=== PATIENT | male | born 1985 | race Caucasian/White ===

== ENCOUNTER 2017-03-29 03:15 | Emergency (ER) | payer SELFPAY ==
[~2017-03-29] VITALS: Ht 177.8 cm; Wt 61.2 kg
[2017-03-29] MEDS ORDERED: IV NORMAL SALINE 1000ML BAG 1,000 ML IV SCH (03:28)
[2017-03-29 03:45] LABS: BASO # 0.1 x10^3/uL (0.0-0.2); BASO % 1 % (0-3); EOS % 3 % (0-3); HEMATOCRIT 39.5 % (39.0-53.0); LYMPH # 1.8 x10^3/uL (1.0-4.8); LYMPH % 18 % (24-48); MEAN CORPUSCULAR HEMOGLOBIN 33 pg (25-35); MEAN CORPUSCULAR HGB CONC 33 g/dL (31-37); MEAN CORPUSCULAR VOLUME 100 fL (79-100); MONO % 7 % (0-9); NEUT % 72 % (31-73); PLATELET COUNT 279 x10^3/uL (140-400); RED BLOOD COUNT 3.98 x10^6/uL (4.30-5.70); RED CELL DISTRIBUTION WIDTH 13.8 % (11.5-14.5); WHITE BLOOD COUNT 10.3 x10^3/uL (4.0-11.0)
[2017-03-29 03:57] LABS: CALCIUM 8.6 mg/dL (8.5-10.1); CREATININE 0.8 mg/dL (0.7-1.3); GFR 114.3; POTASSIUM 4.6 mmol/L (3.5-5.1)
--- NOTE | 2017-03-29 04:09 | PHYS DOC ---
Past Medical History Past Medical History: Anxiety, Asthma, Diabetes-Type I, Other Additional Past Medical Histor: HERNIA Past Surgical History: No Surgical History Alcohol Use: Occasionally Additional Information: PT REPORTS DRUG USE A WEEK AGO BUT WILL NOT DISCLOSE WHAT TYPE OF DRUG HE USES Drug Use: Other Adult General Chief Complaint Chief Complaint: BLOOD SUGAR PROBLEM HPI HPI Patient is a 31 year old male who was being having some high blood sugars, patient also complains of productive cough and chest pain when he coughs that is midsternal. There is no radiation, no nausea, no vomiting, no sweats. Patient has had some chills. Patient has continued to smoke. Patient denies any sick contacts Review of Systems Review of Systems Constitutional: No fevers fever, he has chills [] Eyes: Denies change in visual acuity, redness, or eye pain [] HENT: Denies nasal congestion. He has Sore throat and productive cough [] Respiratory: Denies shortness of breath. Productive cough that is greenish, nonbloody Cardiovascular: Chest pain with cough GI: Denies abdominal pain, nausea, vomiting, Musculoskeletal: Denies back pain or joint pain [] Integument: Denies rash or skin lesions [] Neurologic: Denies headache, focal weakness or sensory changes [] Endocrine: Has polyuria or polydipsia [] Current Medications Current Medications Current Medications Medications (Trade) Dose Ordered Sig/Daisy Start Time Stop Time Status Last Admin Dose Admin Insulin Human Regular (NovoLIN R VIAL) 10 unit 1X ONCE 03/29/17 04:15 03/29/17 04:16 DC 03/29/17 04:28 10 UNIT Sodium Chloride 1,000 ml @ 1,000 mls/hr Q1H 03/29/17 03:28 03/29/17 04:27 DC 03/29/17 03:36 1,000 MLS/HR Allergies Allergies Allergies Coded Allergies Type Severity Reaction Last Updated Verified No Known Drug Allergies 03/29/17 No Physical Exam Physical Exam Constitutional: Well developed, well nourished, no acute distress, non-toxic appearance. [] HENT: Normocephalic, atraumatic, oropharynx dry, no oral exudates, nose normal. [] Eyes: PERRLA, EOMI, conjunctiva normal, no discharge. [] Neck: Normal range of motion, no tenderness, supple, no stridor. No LAD, no meningeal signs Cardiovascular:Heart rate regular rhythm, no murmur, equal pulses, normal perfusion Lungs & Thorax: Bilateral breath sounds clear to auscultation, no tachypnea. No Kussmaul breathing. Abdomen: Bowel sounds normal, soft, no tenderness, no masses, no pulsatile masses. [] Skin: Warm, dry, no erythema, no rash. [] Back: No tenderness, normal range of motion Extremities: No tenderness, no cyanosis, ROM intact, no edema. No signs of DVT Neurologic: Alert and oriented X 3, normal motor function, it no focal deficits noted, patient ambulated in the ED without difficulty with normal gait Psychologic: Affect normal, judgement normal, mood normal. [] Current Patient Data Vital Signs Vital Signs Date Time Temp Pulse Resp B/P (MAP) Pulse Ox O2 Delivery O2 Flow Rate FiO2 03/29/17 03:16 98.0 85 20 113/67 (82) 97 Room Air 98.0 Lab Values Laboratory Tests Test 03/29/17 03:25 03/29/17 03:33 Glucose (Fingerstick) 365 mg/dL (70-99) H White Blood Count 10.3 x10^3/uL (4.0-11.0) Red Blood Count 3.98 x10^6/uL (4.30-5.70) L Hemoglobin 13.0 g/dL (13.0-17.5) Hematocrit 39.5 % (39.0-53.0) Mean Corpuscular Volume 100 fL (79-100) Mean Corpuscular Hemoglobin 33 pg (25-35) Mean Corpuscular Hemoglobin Concent 33 g/dL (31-37) Red Cell Distribution Width 13.8 % (11.5-14.5) Platelet Count 279 x10^3/uL (140-400) Neutrophils (%) (Auto) 72 % (31-73) Lymphocytes (%) (Auto) 18 % (24-48) L Monocytes (%) (Auto) 7 % (0-9) Eosinophils (%) (Auto) 3 % (0-3) Basophils (%) (Auto) 1 % (0-3) Neutrophils # (Auto) 7.4 x10^3uL (1.8-7.7) Lymphocytes # (Auto) 1.8 x10^3/uL (1.0-4.8) Monocytes # (Auto) 0.8 x10^3/uL (0.0-1.1) Eosinophils # (Auto) 0.3 x10^3/uL (0.0-0.7) Basophils # (Auto) 0.1 x10^3/uL (0.0-0.2) Sodium Level 135 mmol/L (136-145) L Potassium Level 4.6 mmol/L (3.5-5.1) Chloride Level 101 mmol/L (98-107) Carbon Dioxide Level 20 mmol/L (21-32) L Anion Gap 14 (6-14) Blood Urea Nitrogen 13 mg/dL (8-26) Creatinine 0.8 mg/dL (0.7-1.3) Estimated GFR (Cockcroft-Gault) 114.3 Glucose Level 400 mg/dL (70-99) H Calcium Level 8.6 mg/dL (8.5-10.1) Troponin I Quantitative < 0.017 ng/mL (0.000-0.055) Laboratory Tests 03/29/17 03:33 Laboratory Tests 03/29/17 03:33 EKG EKG 71, sinus rhythm, no STEMI, EP interpretation at 0328 [] Radiology/Procedures Radiology/Procedures Chest x-ray preliminarily read by me no acute disease [] Course & Med Decision Making Course & Med Decision Making Pertinent Labs and Imaging studies reviewed. (See chart for details) 0451 pt sleeping comfortably, nad, no pain. [] Dragon Disclaimer Dragon Disclaimer This electronic medical record was generated, in whole or in part, using a voice recognition dictation system. Departure Departure Impression: Primary Impression: Cough Additional Impressions: Nonspecific chest pain Tobacco abuse Tobacco abuse counseling Hyperglycemia Dehydration Disposition: 01 HOME, SELF-CARE Condition: IMPROVED Referrals: NO PCP (PCP) Patient Instructions: Cough, Adult, [id number], Dehydration, Adult, Easy-to- Read, Hyperglycemia, [id number], Smoking Cessation, Tips For Success Additional Instructions: Please follow-up with your doctor or one of the clinics in the list provided to you in 1-2 days for recheck and reevaluation Problem Qualifiers Mai BARNES MD Mar 29, 2017 04:09
[2017-03-29] MEDS ORDERED: INSULIN REGULAR 100 UNIT/ML 10ML VIAL. IV ONE (04:15)
[2017-03-29 04:50] VITALS: BP 115/64
--- NOTE | 2017-03-29 07:38 | RAD ---
Portable AP view CXR: Clinical indications: Chest pain today. Comparison: March 27, 2011 Findings: Old granulomatous disease is again evident. No acute lung infiltrate or pleural effusion or pulmonary edema or lung mass or pneumothorax is seen. The heart size, pulmonary vasculature, mediastinum and both konrad are unremarkable. Impression: No acute radiographic abnormality is seen.
--- NOTE | 2017-03-29 09:24 | EKG ---
[facility] [address] [place] [address] Test Date: 2017-03-29 Test Time: 03:17:56 Pat Name: NICHOLAS CHAUHAN Department: Room: Gender: Audit Spec: : 1985 Requested By: Mai BARNES Order Number: [id number] Reading MD: Sohail Oneal Measurements Intervals [place] Rate: 71 P: 46 NC: 124 QRS: 43 QRSD: 82 T: 49 QT: 364 QTc: 400 Interpretive Statements SINUS RHYTHM NO SPECIFIC ECG ABNORMALITIES Electronically Signed On 03-29-2017 15:11:09 CDT by Sohail Oneal
== END 2017-03-29 05:12 | disposition home or self-care (01) ==
LOC: ER 03:15
DX: E10.65 Type 1 diabetes mellitus with hyperglycemia (principal); E86.0 Dehydration; R07.89 Other chest pain; J45.909 Unspecified asthma, uncomplicated; F41.9 Anxiety disorder, unspecified; Z98.890 Other specified postprocedural states; R05 Cough; F17.200 Nicotine dependence, unspecified, uncomplicated
CPT/HCPCS: 36415; 71010; 80048; 82962; 84484; 85027; 93005; 96361; 96374; 99285; J1815; J7030

== ENCOUNTER 2017-11-11 19:36 | Emergency (ER) | payer SELFPAY, MEDICARE ==
[2017-11-11 19:43] LABS: ADD MAN DIFF? NO
[2017-11-11 19:45] LABS: BASO # 0.1 x10^3/uL (0.0-0.2); BASO % 1 % (0-3); EOS # 0.2 x10^3/uL (0.0-0.7); EOS % 2 % (0-3); HEMATOCRIT 43.5 % (39.0-53.0); HEMOGLOBIN 14.4 g/dL (13.0-17.5); LYMPH # 1.6 x10^3/uL (1.0-4.8); LYMPH % 15 % (24-48); MEAN CORPUSCULAR HEMOGLOBIN 31 pg (25-35); MEAN CORPUSCULAR HGB CONC 33 g/dL (31-37); MEAN CORPUSCULAR VOLUME 95 fL (79-100); MONO # 0.6 x10^3/uL (0.0-1.1); MONO % 5 % (0-9); NEUT # 8.3 x10^3uL (1.8-7.7); NEUT % 76 % (31-73); PLATELET COUNT 287 x10^3/uL (140-400); RED CELL DISTRIBUTION WIDTH 13.4 % (11.5-14.5); WHITE BLOOD COUNT 10.8 x10^3/uL (4.0-11.0)
[2017-11-11] MEDS ORDERED: CONTRAST GIVEN MC (19:45)
[2017-11-11 19:58] LABS: ANION GAP 6 (6-14); BLOOD UREA NITROGEN 11 mg/dL (8-26); BUN/CREATININE RATIO 8 (6-20); CALCIUM 8.8 mg/dL (8.5-10.1); CARBON DIOXIDE 28 mmol/L (21-32); CHLORIDE 102 mmol/L (98-107); CREATININE 1.3 mg/dL (0.7-1.3); GFR 64.8; GLUCOSE 406 mg/dL (70-99); POTASSIUM 4.5 mmol/L (3.5-5.1); SODIUM 136 mmol/L (136-145)
[2017-11-11] MEDS: IOHEXOL 300 MG/ML 100ML VIAL. IV (19:58)
[2017-11-11 19:59] LABS: ETHANOL < 10 mg/dL (0-10)
[2017-11-11 19:59] LABS: INR 1.1 (0.8-1.1); PARTIAL THROMBOPLASTIN TIME 30 SEC (24-38); PROTHROMBIN TIME PATIENT 13.2 SEC (11.7-14.0)
[2017-11-11 20:07] LABS: NT-PRO BNP 29 pg/mL (0-124); TROPONINI < 0.017 ng/mL (0.000-0.055)
[2017-11-11 20:11] LABS: ALBUMIN 3.9 g/dL (3.4-5.0); ALBUMIN/GLOBULIN RATIO 1.3 (1.0-1.7); ALK PHOS 66 U/L (46-116); ALT (SGPT) 18 U/L (16-63); AST (SGOT) 17 U/L (15-37); LIPASE 39 U/L (73-393); MAGNESIUM 1.9 mg/dL (1.8-2.4); TOTAL BILIRUBIN 0.5 mg/dL (0.2-1.0); TOTAL PROTEIN 6.9 g/dL (6.4-8.2)
[2017-11-11] MEDS: fentaNYL PF VIAL 100 MCG/2 ML VIAL IV (20:12)
[2017-11-11] MEDS: DIPHTH,PERTUSS(ACELL),TET TOX 0.5 ML DISP.SYRIN. VAX IM (20:12)
[2017-11-11] MEDS: KETOROLAC 30 MG/ML INJ. IV (21:28)
== END 2017-11-11 22:23 | disposition home or self-care (01) ==
LOC: ER 22:23
DX: S16.1XXA Strain of muscle, fascia and tendon at neck level, initial encounter (principal); S43.401A Unspecified sprain of right shoulder joint, initial encounter; S80.211A Abrasion, right knee, initial encounter; S50.311A Abrasion of right elbow, initial encounter; S09.90XA Unspecified injury of head, initial encounter; F41.9 Anxiety disorder, unspecified; J45.909 Unspecified asthma, uncomplicated; E10.9 Type 1 diabetes mellitus without complications; W22.8XXA Striking against or struck by other objects, initial encounter; Y93.89 Activity, other specified; Y92.89 Other specified places as the place of occurrence of the external cause; Y99.8 Other external cause status
CPT/HCPCS: 36415; 70450; 71260; 72125; 73030; 73080; 73562; 74177; 80053; 83690; 83735; 83880; 84484; 85025; 85610; 85730; 86850; 86900; 86901; 90471; 90715; 93005; 96374; 96375; 99285-25; G0480; J1885; J3010; Q9967